=== PATIENT | female | born 1980 | race Caucasian/White ===

== ENCOUNTER → 2020-01-01 16:05 | Outpatient (CLI) | payer OTHER, SELFPAY ==
--- NOTE | ~2020-01-01 | MM_ITS ---
EXAMINATION: MM screening [facility] BI w christiano HISTORY: Screening mammogram TECHNIQUE: Craniocaudal and mediolateral oblique 3-D tomosynthesis images were obtained and synthetic 2-D images were generated. CAD analysis was submitted and interpreted. COMPARISON: 09/05/2018, 08/26/2018 BREAST PARENCHYMAL COMPOSITION: There are scattered areas of fibroglandular density. FINDINGS: There is no evidence of suspicious mass, calcification, or architectural distortion to sugg est malignancy in either breast. There has been no suspicious interval change. IMPRESSION: 1. No mammographic evidence of malignancy. 2. Recommend routine screening mammography in one year. BI-RADS Category 1: Negative Reviewed, dictated and finalized at location A.
== END ==
PROVIDERS: PCP Family Medicine; Visit Provider Obstetrics & Gynecology Gynecology
DX: Z12.31 Encounter for screening mammogram for malignant neoplasm of breast (principal)
CPT/HCPCS: 77063; 77067

== ENCOUNTER → 2020-12-30 09:50 | Outpatient (CLI) | payer OTHER, SELFPAY ==
--- NOTE | ~2020-12-30 | XR_ITS ---
EXAMINATION: XR lumbar spine 2-3V DATE: 12/30/2020 10:12 INDICATION: Low back pain TECHNIQUE: Anteroposterior and lateral views of the lumbar spine, and cone-down lateral view of the l umbosacral junction were obtained. COMPARISON: CT pelvis dated 12/09/2018 FINDINGS: Alignment is normal. Vertebral body and disc heights are normal. Mild lower lumbar facet osteoarthrit is. There is a band of lucency extending across the L5 pars interarticularis with corresponding bilat eral pars interarticularis defects identified on a CT of the pelvis dated 12/09/2018.. Sacrum and bilat eral sacroiliac joints are normal. IMPRESSION: 1. Chronic bilateral L5 pars interarticularis defects and mild lower lumbar facet osteoarthritis. Reviewed, dictated and finalized at location A. IMPRESSION: 1. Chronic bilateral L5 pars interarticularis defects and mild lower lumbar fac et osteoarthritis.
== END ==
PROVIDERS: PCP Nurse Practitioner Adult Health; Visit Provider Nurse Practitioner Adult Health
DX: M54.5 Low back pain (principal)
CPT/HCPCS: 72100

== ENCOUNTER → 2021-01-03 11:24 | Outpatient (CLI) | payer OTHER, SELFPAY ==
--- NOTE | ~2021-01-03 | MM_ITS ---
EXAMINATION: MM screening [facility] BI w christiano HISTORY: Screening TECHNIQUE: Craniocaudal and mediolateral oblique 3-D tomosynthesis images were obtained and synthetic 2-D images were generated. CAD analysis was submitted and interpreted. COMPARISON: Comparison to multiple prior studies sequentially, with oldest reviewed study dated 08/26. BREAST PARENCHYMAL COMPOSITION: There are scattered areas of fibroglandular density. FINDINGS: There is no evidence of suspicious mass, calcification, or architectural distortion to sugg est malignancy in either breast. There has been no suspicious interval change. IMPRESSION: 1. No mammographic evidence of malignancy. 2. Recommend routine screening mammography in one year. BI-RADS Category 1: Negative Reviewed, dictated and finalized at location A.
== END ==
PROVIDERS: PCP Nurse Practitioner Adult Health; Visit Provider Obstetrics & Gynecology Gynecology
DX: Z12.31 Encounter for screening mammogram for malignant neoplasm of breast (principal)
CPT/HCPCS: 77063; 77067

== ENCOUNTER 2021-01-09 06:55 | Outpatient (CLI) | payer OTHER, SELFPAY ==
--- NOTE | 2021-01-23 13:47 | WPDHOMESLEEP ---
Sleep Study - Home Unattended Date of Study: 01/09/21 <Nery Trujillo DO - Last Filed: 01/31/21 11:55> Ordering Provider: Sierra Vásquez, [employer] <Nery Trujillo DO - Last Filed: 01/31/21 11:55> Interpreting Provider: Nery Trujillo DO <Nery Trujillo DO - Last Filed: 01/31/21 11:55> Home Sleep Study Type: Watch PAT <Nery Trujillo DO - Last Filed: 01/31/21 11:55> Height: 1.7 m <Nery Trujillo DO - Last Filed: 01/31/21 11:55> Weight: 135.171 kg <Nery Trujillo DO - Last Filed: 01/31/21 11:55> Body Mass Index: 46.6 <Nery Trujillo DO - Last Filed: 01/31/21 11:55> Neck Circumference (inches): 18 <Nery Trujillo DO - Last Filed: 01/31/21 11:55> Letcher: 7 <Nery Trujillo DO - Last Filed: 01/31/21 11:55> Reason for Sleep Study The patient has known NEO and is on PAP Therapy. She is having issues with her mask coming off and condensation collecting in the mask. <Nery Trujillo DO - Last Filed: 01/31/21 11:55> Sleep History The patient is a 40-year-old female with hypertension, depression, anxiety and NEO on CPAP that had a home sleep test ordered due to issues with her CPAP. The patient states that her mask falls off and she gets condensation dressing and to her mask almost every night for the past 3 months. The patient had a split study done on 12/24/2014 that showed an AHI of 84.6. She was titrated on CPAP and the 2nd half of the study to 11 cm H2O. She had an EPR of 2 for comfort. The patient denies awakening from sleep short of breath. She denies awakening at night with heartburn, belching or cough. She constantly snores loud others complain. She often has difficulty sleeping when she has cold. She rarely wakes up gasping for breath throughout the night. She often has breathing problems at night observed by others. She rarely falls asleep during the day. She rarely has trouble at work or school due to sleepiness. She denies sleep paralysis, cataplexy and hypnagogic / hypnopompic hallucinations. She denies having nightmares. She often has thoughts racing through her mind. She often feels sad, depressed and anxious. She often has muscular tension. She denies noticing parts of her body jerk. She frequently kicks throughout the night. She rarely experiences crawling and aching feelings in her legs as well as leg pain during the night. She denies grinding her teeth during sleep and awakening with morning jaw pain. She is frequently bothered by pain during the day and is often awakened by pain throughout the night. She frequently wakes up feeling stiff in the morning with sore and achy muscles. The patient currently goes to bed at 10:00 p.m. on weekdays and weekends. He takes her 30-40 minutes to fall asleep. She wakes up 2-3 times throughout the night. When she wakes up she will use the restroom, check the house and look in on her kids. She can fall back asleep within 5-10 minutes. She wakes up at 5:45 a.m. on the weekdays and 7:30 a.m. on the weekends. She typically gets 6-7 hours of sleep per night she currently lives with her and her 5-year-old child. She denies consuming caffeinated beverages 2 hours prior to bedtime. She does not engage in physical exercise before bedtime. Will repeat prior to falling asleep. She denies watching television before going to sleep. She does not take any naps in the afternoon or evening. She denies tobacco, alcohol, caffeine and recreational drug use. <Nery Trujillo DO - Last Filed: 01/31/21 11:55> [facility] Past Medical History Medical History: Medical History (Updated 01/23/21 @ 14:20 by Nery Trujillo DO) Obstructive sleep apnea <Nery Trujillo DO - Last Filed: 01/31/21 11:55> Family History Family History: Family History Other Diabetes mellitus Family his
[2021-01-31 11:55] VITALS: BMI 46.6
== END 2021-01-23 13:00 | disposition home or self-care (01) ==
PROVIDERS: PCP Nurse Practitioner Adult Health; Visit Provider Nurse Practitioner Adult Health
DX: G47.30 Sleep apnea, unspecified (principal); G47.33 Obstructive sleep apnea (adult) (pediatric)
CPT/HCPCS: 95800

== ENCOUNTER → 2021-11-17 12:25 | Outpatient (CLI) | payer OTHER, SELFPAY ==
--- NOTE | ~2021-11-17 | CT_ITS ---
EXAMINATION: CT abdomen wo con DATE: 11/17/2021 12:57 INDICATION: Hernia of the anterior abdominal wall. History of bariatric surgery and hernia repair. TECHNIQUE: Computed tomography (CT) of the abdomen was performed without intravenous contrast. The do se-length product was 778.39 mGy-cm. Automated exposure control and iterative reconstruction techniqu e were employed. COMPARISON: No prior studies for comparison. . FINDINGS: Left lower lobe atelectasis. Borderline heart size. No significant pleural or pericardial e ffusion. There are surgical changes of gastric bypass. There are surgical changes lower anterior midl ine abdomen, consistent with previous hernia repair. No evidence for recurrence of hernia. Gallstones . The liver, spleen, pancreas, adrenal glands and kidneys are unremarkable. No significant vascular abn ormality. No lymphadenopathy. No free air or free fluid. No acute osseous abnormality. IMPRESSION: 1. Cholelithiasis. Reviewed, dictated and finalized at location A. IMPRESSION: 1. Cholelithiasis.
== END ==
PROVIDERS: PCP Nurse Practitioner Adult Health; Visit Provider Nurse Practitioner Adult Health
DX: K43.9 Ventral hernia without obstruction or gangrene (principal); K80.20 Calculus of gallbladder without cholecystitis without obstruction
CPT/HCPCS: 74150

== ENCOUNTER → 2022-01-09 15:47 | Outpatient (CLI) | payer OTHER, SELFPAY ==
--- NOTE | ~2022-01-09 | MM_ITS ---
EXAMINATION: MM screening [facility] BI w christiano HISTORY: Screening mammogram TECHNIQUE: Craniocaudal and mediolateral oblique 3-D tomosynthesis images were obtained and synthetic 2-D images were generated. CAD analysis was submitted and interpreted. COMPARISON: 01/03/2021, 01/01/2020, 08/26/2018 BREAST PARENCHYMAL COMPOSITION: There are scattered areas of fibroglandular density. FINDINGS: No suspicious mass, calcification, or architectural distortion are identified in either jamie ast to suggest malignancy. There has been no suspicious interval change. IMPRESSION: 1. No mammographic evidence of malignancy. 2. Recommend routine screening mammography in one year. BI-RADS Category 0: Incomplete: Needs additional imaging evaluation. Reviewed, dictated and finalized at location A.
== END ==
PROVIDERS: PCP Nurse Practitioner Adult Health; Visit Provider Obstetrics & Gynecology Gynecology
DX: Z12.31 Encounter for screening mammogram for malignant neoplasm of breast (principal)
CPT/HCPCS: 77063; 77067

== ENCOUNTER → 2022-09-15 10:58 | Outpatient (CLI) | payer OTHER, SELFPAY ==
--- NOTE | ~2022-09-15 | XR_ITS ---
EXAMINATION: XR chest 2V 09/15/2022 11:26 INDICATION: Chronic cough PROCEDURE: 2 view chest COMPARISON: No prior studies for comparison. FINDINGS: The lungs are clear. The cardiomediastinal silhouette is within normal limits. There are no pleural effusions. There is no pneumothorax suspected. IMPRESSION: 1: NO ACUTE CARDIOPULMONARY DISEASE. Reviewed, dictated and finalized at location A.
== END ==
PROVIDERS: PCP Nurse Practitioner Family; Visit Provider Nurse Practitioner Family
DX: R05.3 Chronic cough (principal)
CPT/HCPCS: 71046

== ENCOUNTER 2023-01-08 14:03 | Outpatient (CLI) | payer BC, OTHER, SELFPAY ==
--- NOTE | 2023-01-08 | ECHO_ITS ---
Patient Info Name: Adeola Dockery Age: 42 years : 1980 Gender: Female Ht: 67 in Wt: 280 lbs BSA: 2.52 m2 HR: 80 bpm BP: 117 / 82 mmHg Heart Rhythm: Sinus Rhythm Technical Quality: Good Exam Date: 01/08/2023 2:50 PM Exam Location: [facility] Pulmonary Patient Status: Outpatient Admit Date: 01/08/2023 Staff Ordering Physician: ChristopherBrian MD Economic Research Assistant: Virginia Torres RDCS Attending Provider: HarshadBrian MD Exam Type: CA echo doppler color flow Study Info Indications - PAROXYSMAL A FIB Complete two-dimensional, color flow and Doppler transthoracic echocardiogram is performed. Summary 1. Complete two-dimensional, color flow and Doppler transthoracic echocardiogram is performed. 2. Normal left ventricular size with mild concentric hypertrophy. Good systolic function of all segments with no segmental wall motion abnormalities. Ejection fraction is 65%. Grade 2 diastolic dysfunction is present. 3. No significant valve disease. 4. Mild left atrial enlargement. 5. Normal sinus rhythm. Left Ventricle Left ventricular chamber dimension is normal. Left ventricular systolic function is normal, estimated at 60-65%. There is mildly increased left ventricular wall thickness. Left ventricular septal wall motion is normal. The left ventricular diastolic function is grade II diastolic dysfunction. Right Ventricle Right ventricular chamber dimension is normal. Right ventricular systolic function is normal. Left Atria Left atrial chamber dimension is mildly enlarged. Right Atria Right atrial chamber dimension is normal. Aortic Valve The aortic valve is trileaflet. There is no aortic valve sclerosis. There is no aortic valve stenosis. There is no aortic valve regurgitation. Pulmonic Valve The pulmonic valve is normal. There is no pulmonic valve stenosis. There is no pulmonic regurgitation. Mitral Valve The mitral valve has normal leaflets. There is no mitral valve stenosis. There is no mitral valve regurgitation. Tricuspid Valve The tricuspid valve leaflets are normal. There is no significant tricuspid valve stenosis. There is trace tricuspid valve regurgitation. No pulmonary hypertension, estimated pulmonary arterial systolic pressure is Empty. Pericardium/Pleural The pericardium appears normal. There is no pericardial effusion. Inferior Vena Cava Normal inferior vena cava with >50% collapse upon inspiration consistent with Empty right atrial pressure, Empty. Aorta The aortic root size at the sinus of Valsalva is normal. The prox ascending aorta size is normal. Left Ventricular Outflow Tract Name Value Normal LVOT 2D LVOT Diameter 2.1 cm LVOT Doppler LVOT Peak Gradient 3 mmHg LVOT Mean Gradient 2 mmHg LVOT VTI 34 cm LVOT VTI/AV VTI Ratio 1.0 LVOT Stroke Volume 112 ml LVOT CO 4.2 l/min LVOT CI 1.7 l/min/m2 Pulmonic Valve Name Value Feli
== END 2023-01-08 14:04 | disposition home or self-care (01) ==
LOC: ANHCARD 14:06
PROVIDERS: PCP Nurse Practitioner Family; Visit Provider Internal Medicine Cardiovascular Disease
DX: I48.0 Paroxysmal atrial fibrillation (principal)
CPT/HCPCS: 93306

== ENCOUNTER → 2023-02-07 14:23 | Outpatient (CLI) | payer BC, OTHER, SELFPAY ==
--- NOTE | ~2023-02-07 | MM_ITS ---
EXAMINATION: MM screening [facility] BI w christiano HISTORY: Screening mammogram TECHNIQUE: Craniocaudal and mediolateral oblique 3-D tomosynthesis images were obtained and synthetic 2-D images were generated. CAD analysis was submitted and interpreted. COMPARISON: 01/09/2022, 01/03/2021, 01/01/2020 BREAST PARENCHYMAL COMPOSITION: There are scattered areas of fibroglandular density. FINDINGS: No suspicious mass, calcification, or architectural distortion are identified in either jamie ast to suggest malignancy. There has been no suspicious interval change. IMPRESSION: 1. No mammographic evidence of malignancy. 2. Recommend routine screening mammography in one year. BI-RADS Category 1: Negative Reviewed, dictated and finalized at location A.
== END ==
PROVIDERS: PCP Nurse Practitioner Family; Visit Provider Obstetrics & Gynecology Gynecology
DX: Z12.31 Encounter for screening mammogram for malignant neoplasm of breast (principal)
CPT/HCPCS: 77063; 77067

== ENCOUNTER 2023-09-25 01:05 | Day surgery (SDC) | payer OTHER, SELFPAY ==
[2023-09-13 10:00] VITALS: BMI 40.7
[2023-09-25] MEDS: LACTATED RINGERS 1,000 ML 150 ML IV CONT (07:36)
[2023-09-25 07:38] VITALS: BP 173/85; PULSE 71; RESP 20; TEMP 35.9; O2SAT 100; BMI 41.8
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
[2023-09-25 08:02] VITALS: BP 139/86
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
[2023-09-25 08:31] VITALS: BP 97/65
[2023-09-25 08:41] VITALS: BP 108/71
== END 2023-09-25 09:08 | disposition home or self-care (01) ==
PROVIDERS: PCP Nurse Practitioner Family; Visit Provider Internal Medicine Gastroenterology
PROC: 0DJD8ZZ Inspection of Lower Intestinal Tract, Via Natural or Artificial Opening Endoscopic (ICD-10-PCS; CPT 45378; principal; 2023-09-25 08:30)
DX: Z12.11 Encounter for screening for malignant neoplasm of colon (principal); K62.1 Rectal polyp; G47.33 Obstructive sleep apnea (adult) (pediatric); F41.9 Anxiety disorder, unspecified; Z98.84 Bariatric surgery status; Z87.891 Personal history of nicotine dependence; E66.01 Morbid (severe) obesity due to excess calories; Z68.41 Body mass index [BMI] 40.0-44.9, adult
CPT/HCPCS: 45380; 88305; J1100; J2405; J2704; J7120

== ENCOUNTER 2024-02-14 13:46 | Outpatient (CLI) | payer OTHER, SELFPAY ==
--- NOTE | ~2024-02-14 | MM_ITS ---
EXAMINATION: MM screening [facility] BI w christiano HISTORY: Screening TECHNIQUE: Craniocaudal and mediolateral oblique 3-D tomosynthesis images were obtained and synthetic 2-D images were generated. CAD analysis was submitted and interpreted. COMPARISON: Comparison to multiple prior studies sequentially, with oldest reviewed study dated 08/26. BREAST PARENCHYMAL COMPOSITION: Not dense: There are scattered areas of fibroglandular density. FINDINGS: There is no evidence of suspicious mass, calcification, or architectural distortion to sugg est malignancy in either breast. There has been no suspicious interval change. IMPRESSION: 1. No mammographic evidence of malignancy. 2. Recommend routine screening mammography in one year. 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
== END 2024-02-14 13:47 | disposition home or self-care (01) ==
LOC: MICIMG 13:47
PROVIDERS: PCP Nurse Practitioner Family; Visit Provider Nurse Practitioner Family
DX: Z12.31 Encounter for screening mammogram for malignant neoplasm of breast (principal)
CPT/HCPCS: 77063; 77067

== ENCOUNTER 2025-02-19 13:18 | Outpatient (CLI) | payer OTHER, SELFPAY ==
--- NOTE | ~2025-02-19 | MM_ITS ---
EXAMINATION: MM screening darlene BI w christiano HISTORY: Screening TECHNIQUE: Craniocaudal and mediolateral oblique 3-D tomosynthesis images were obtained and synthetic 2-D images were generated. CAD analysis was submitted and interpreted. COMPARISON: Comparison to multiple prior studies sequentially, with oldest reviewed study dated 01/01/2020. BREAST PARENCHYMAL COMPOSITION: Not dense: There are scattered areas of fibroglandular density. FINDINGS: There is no evidence of suspicious mass, calcification, or architectural distortion to suggest malignancy in either breast. There has been no suspicious interval change. IMPRESSION: 1. No mammographic evidence of malignancy. 2. Recommend routine screening mammography in one year. 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
== END 2025-02-19 13:19 | disposition home or self-care (01) ==
PROVIDERS: PCP Obstetrics & Gynecology Gynecology; Visit Provider Nurse Practitioner Family
DX: Z12.31 Encounter for screening mammogram for malignant neoplasm of breast (principal)
CPT/HCPCS: 77063; 77067

== ENCOUNTER 2025-02-22 01:42 | Day surgery (SDC) | payer OTHER, SELFPAY ==
--- NOTE | 2025-02-12 11:08 | SUR.PREOP ---
[facility] has started construction of its new state of the art ER which will open Spring 2026. With this, we anticipate parking may be a challenge for some our surgical patients and families. Parking spaces are limited but are available for all Surgical, obstetrics, and ER patients sharing this lot. If you arrive and find you are having a hard time finding a parking space, please note that we understand the challenges, please drive around the hospital and park near Hospital Entrance 1. When you enter this entrance, you can ask a volunteer to direct or take you back to the surgical waiting area to check in. We appreciate everyone?s understanding of these expected challenges while we build for your future. Report to the Outpatient Waiting Room, entrance under the green pavilion located off [address], at time _615_ on date _02/22/25_. Planned Procedure Time: _0815AM_.? Time changes happen often and if your time is changed the preop area will call you the afternoon before. - You and your visitor will be asked to self-screen and do not enter if you have any COVID symptoms. Please call surgeon if you need to reschedule. - A mask is optional within the hospital at this time. Patients may have clear liquids (water, carbonated beverages, clear teas, apple juice) until 3 hours prior to surgery with a maximum of 20 ounces. - No food from midnight until time of surgery and no smoking, or chewing tobacco (or any form of nicotine). No chewing gum, candy or mints. Take only the following medications with a SIP of water on the morning of surgery: _escitalopram__ DO NOT STOP ANY OF YOUR OTHER PRESCRIPTION MEDICATIONS PRIOR TO SURGERY EXCEPT THE FOLLOWING Hold all vitamins and supplements for 3 days per anesthesiologist. Medications to discontinue per physician _none__ Date to take last dose_of vitamins 02/18/25, Skip Zepbound dose on 02/17/25 and restart after procedure.__ Please no make-up, nail kazakh, hairspray, perfume, deodorant, or body powder the day of surgery.? No jewelry (including any body piercings) or valuables the day of surgery, leave them at home.? Please take a shower or bath the night before, or the morning of, surgery with an antibacterial soap.? Wear comfortable, loose fitting clothing. - Jewelry must be removed prior to entering the operating room.? Rings and piercings that are not removed may be cut off. - The hospital will not accept responsibility for valuables.? - Please leave all valuables, including medications, at home the day of surgery. If you are going home after surgery, a licensed driver education instructor must drive you home.? - NO public transportation without another adult if you receive anesthesia. - We recommend that an adult stay with you for 24 hours following discharge. - We also recommend that you do not drive, make important decision, drink alcoholic beverages, or take any drugs that were not prescribed by your health care provider for at least 24 hours after your discharge time. Follow any additional instructions given to you from your surgeon. Telephone instructions given to __Adeola__and asked if any additional questions and then verbalized understanding. Patient advised to call surgeon office or pre surgery nurse liaison [phone] if any additional questions.
[2025-02-12 11:13] VITALS: BMI 41.0
--- OUTSIDE RECORDS SUMMARY | 2025-02-22 01:45 | XMS_ITS | Clinical Summary ---
Author Organization [facility] [employer] Address [address] [place] [address] Care Team Providers Care Pound Attendant Name Role Phone Latoya Reis APRN-[facility] Primary Care Provider Source Comments [facility] [employer],non-owned Affiliates and Associated Physician Practices is amultiple site organization consisting of ambulatory clinics and hospital sitesin [place], [place], [place] and [place]. This disclosure is being madepursuant to the Care Everywhere program and may not contain all information available regarding this patient. Last updated 17.[facility] [employer] Allergies No known active allergies Medications * Be aware that medications may not be up to date on this document. Alwaysverify current medications with the patient. vitamin D, ergocalciferol , (DRISDOL) 24874 UNITS capsule Take 1 (one) capsule by mouth every 7 days Mondays09/28/19 18 Active escitalopram (LEXAPRO) 20 MG tablet Take 1 (one) tablet by mouth at bedtime Active lisinopril (PRINIVIL; ZESTRIL) 40 MG tablet Take 1 (one) tablet by mouth at bedtime Active triamcinolone acetonide (Kenalog) 0.1 % cream Apply to affected area 2 times daily as needed (rash) 06/23/19 23 Active tirzepatide (Zepbound) 10 MG/0.5ML injectionIndic ations:BMI 40.0-44.9, adult (HCC) Inject 10 (ten) mg subcutaneously every 7 days (once a week) 6 mL 09/25/19 25 Active amitriptyline (Elavil) 25 MG tablet 01/23/20 25 Active tirzepatide (Zepbound) 12.5 MG/0.5ML injectionIndic ations:BMI 40.0-44.9, adult (HCC) Inject 12.5 (twelve and one-half) mg subcutaneously every 7 days (once a week) 2 mL 1 01/27/20 25 Active tirzepatide (Zepbound) 10 MG/0.5ML injectionIndic ations:Morbid obesity (HCC),NEO (obstructive sleep apnea) Inject 10 (ten) mg subcutaneously every 7 days (once a week) 2 mL 2 10/29/19 25 025 Discontin ued(Tx Complete) Active Problems Problem Noted Date Diagnosed Date Iron deficiency 10/25/2023 Pre-op evaluation 10/24/2022 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 Encounters Date Type Department Care Team Description 01/26/2025 1:50 PM CDT Office Visit [facility] Management Services [address] [place] [address], [facility] [address] [id number] Shelby De La Torre APRN-ELIJAH BMI 40.0-44.9, adult (HCC) (Primary Dx) from Last 3 Months Family History Medical History Relation Name Comments Diabetes - Type 2 Father Parkinson's Disease Maternal Grandfather Alzheimer's Disease Maternal Grandmother Diabetes - Type 2 Mother Hypertension Mother Alzheimer's Disease Paternal Grandfather CAD (Coronary Artery Disease) Paternal Grandmother Relation Name Status Comments Father Maternal Grandfather Maternal Grandmother Mother Paternal Grandfather Paternal Grandmother Social History Tobacco Use Types Packs/Day Years Used Date Smoking Tobacco: Former Cigarettes 1997 Smokeless Tobacco: Never Tobacco Cessation:Counseling Given: Not Answered Alcohol Use Standard Drinks/Week Comments No 0 (1 standard drink = 0.6 oz pur e alcohol) Overall Financial Resource Strain (CARDIA) Answe r Date Recorded How hard is it for you to pa y for the very basics like food, housing, medical care, and heating? Not hard at all 10/24/2022 [facility] [place] [facility] - Occupational Stress Questionnaire Answer Date Recorded Do you feel stress - tense, restless, nervous, or anxious, or unable to sleep at night because your mind is troubled all the time - these days? Not at all 10/24/2022 Hunger Vital Sign Answer Date Recorded Within the past 12 months, y ou worried that your food would run out before you got the money to buy more. Never true 10/25/19 23 Within the past 12 months, t he food you bought just didn't last and you didn't have money to get more. Never true 10/24/2022 PRAPARE - Transportation Answer Date Re corded In the past 12 months, has l ack of transportation kept you from medical appointments or from getting medications? No 10/06 In the past 12 months, has l ack of transportation kept you from meetings, work, or from getting things needed for daily living? No 10/24/2022 Housing Stability Vital Sign Answer Solo e Recorded In the last 12 months, was t here a time when you were not able to pay the mortgage or rent on time? No 10/24/2022 In the last 12 months, how many places have you lived? 1 10/24/2022 In the last 12 months, was t here a time when you did not have a steady place to sleep or slept in a skilled nursing (including now)? No 10/24/2022 Comments No Sex and Gender Information Value Date Recorded Sex Assigned at Not on file Legal Sex Female 9:51 AM CDT Gender Identity Female 08/29/2017 2:14 PM CDT Sexual Orientation Not on file Last Filed Vital Signs Vital Sign Reading Time Taken Comments Blood Pressure 126/84 01/26/2025 1:33 PM CDT Pulse 75 01/26/2025 1:33 PM CDT Temperature 36.2 C (97.1 F) 01/26/2025 1:33 PM CDT Respiratory Rate 18 11/18/2023 11:2 0 AM CDT Oxygen Saturation 96% 01/26/2025 1:33 PM CDT Inhaled Oxygen Concentration - - Weight 116.8 kg (257 lb 9.6 oz) 01/26/2025 1:33 PM CDT Height 170.2 cm (5' 7) 01/26/2025 1:33 PM CDT Body Mass Index 40.35 01/26/2025 1:33 PM CDT Plan of Treatment Upcoming Encounters Date Type Department Care Team (Late st Contact Info) Description 03/10/2025 8:00 AM ART GALLERY DIRECTOR Office Visit [facility] Weight Management Services [address], [address] [place] [address] Shelby De La Torre APRN-[facility] [address] [place] [address] Health Maintenance Due Date Last Done Comments COLOGUARD (AGES 45-75) - COLON CA SCREENING 1978 COLON MONITORING 1978 COLONOSCOPY - COLON CA SCREENING 1978 CT COLONOGRAPHY - COLON CA SCREENING 1978 Colorectal Cancer Screening 1978 FIT - COLON CA SCREENING 1978 FLEX SIG - COLON CA SCREENING 1978 LIPID TESTING 1978 MAMMOGRAM 1978 HIV SCREENING 1993 HEPATITIS C SCREENING 06/29/1996 DTAP/TDAP/TD VACCINES (1 - Tdap) 1997 HEPATITIS B VACCINE (1 of 3 - 19+ 3-dose series) 1997 PAP SMEAR 07/05/1999 Cervical Cancer Screening 2008 PAP with HPV 2008 DEPRESSION SCREENING 04/08/2024 COVID-19 VACCINE ( - season) 2024 04/27/2021 INFLUENZA VACCINE (#1) 2024 5, 12/28/2016, 02/28/2016 SCREENING FOR DIABETES 02/11/2028 5, 10/23/2023, 12/03/2022, Additional history exists ZOSTER VACCINE (1 of 2) 2028 HIB VACCINE Aged Out No longer eligi ble based on patient's age to complete this topic HPV VACCINE Aged Out No longer eligi ble based on patient's age to complete this topic MENINGOCOCCAL (Group B) VACCINE SHARED DECISION-MAKING Aged Out No longer eligible based on patient's age to complete this topic MENINGOCOCCAL GROUPS A/C/Y/W VACCINE Aged Out No longer eligible based on patient's age to complete this topic PNEUMOCOCCAL VACCINE Aged Out No long er eligible based on patient's age to complete this topic Procedures Procedure Name Priority Date/Time Associated Diagnosis Comments ZINC BLOOD Routine 02/10/2025 1:39 PM ART GALLERY DIRECTOR Morbid obesity (HCC) Bariatric surgery status Vitamin deficiency Vitamin D deficiency Postsurgical malabsorption (HCC) VITAMIN E Routine 02/10/2025 1:39 PM ART GALLERY DIRECTOR Morbid obesity (HCC) Bariatric surgery status Vitamin deficiency Vitamin D deficiency Postsurgical malabsorption (HCC) VITAMIN B12 Routine 02/10/2025 1:39 PM ART GALLERY DIRECTOR Morbid obesity (HCC) Bariatric surgery status Vitamin deficiency Vitamin D deficiency Postsurgical malabsorption (HCC) VITAMIN B1 Routine 02/10/2025 1:39 PM ART GALLERY DIRECTOR Morbid obesity (HCC) Bariatric surgery status Vitamin deficiency Vitamin D deficiency Postsurgical malabsorption (HCC) VITAMIN A Routine 02/10/2025 1:39 PM ART GALLERY DIRECTOR Morbid obesity (HCC) Bariatric surgery status Vitamin deficiency Vitamin D deficiency Postsurgical malabsorption (HCC) PTH INTACT Routine 02/10/2025 1:39 PM ART GALLERY DIRECTOR Morbid obesity (HCC) Bariatric surgery status Vitamin deficiency Vitamin D deficiency Postsurgical malabsorption (HCC) MAGNESIUM BLOOD Routine 02/10/2025 1:39 PM ART GALLERY DIRECTOR Morbid obesity (HCC) Bariatric surgery status Vitamin deficiency Vitamin D deficiency Postsurgical malabsorption (HCC) FERRITIN Routine 02/10/2025 1:39 PM ART GALLERY DIRECTOR Morbid obesity (HCC) Bariatric surgery status Vitamin deficiency Vitamin D deficiency Postsurgical malabsorption (HCC) COPPER BLOOD Routine 02/10/2025 1:39 PM ART GALLERY DIRECTOR Morbid obesity (HCC) Bariatric surgery status Vitamin deficiency Vitamin D deficiency Postsurgical malabsorption (HCC) COMPREHENSIVE METABOLIC PANEL Routine 02/10/2025 1:39 PM ART GALLERY DIRECTOR Morbid obesity (HCC) Bariatric surgery status Vitamin deficiency Vitamin D deficiency Postsurgical malabsorption (HCC) CBC W/O DIFFERENTIAL Routine 02/10/2025 1:39 PM ART GALLERY DIRECTOR Morbid obesity (HCC) Bariatric surgery status Vitamin deficiency Vitamin D deficiency Postsurgical malabsorption (HCC) VITAMIN D 25-HYDROXY Routine 02/10/2025 1:38 PM ART GALLERY DIRECTOR Morbid obesity (HCC) Bariatric surgery status Vitamin deficiency Vitamin D deficiency Postsurgical malabsorption (HCC) IRON + TIBC PANEL Routine 02/10/2025 1:3 8 PM ART GALLERY DIRECTOR Morbid obesity (HCC) Bariatric surgery status Vitamin deficiency Vitamin D deficiency Postsurgical malabsorption (HCC) FOLATE Routine 02/10/2025 1:38 PM ART GALLERY DIRECTOR Morbid obesity (HCC) Bariatric surgery status Vitamin deficiency Vitamin D deficiency Postsurgical malabsorption (HCC) from Last 3 Months Results * ZINC BLOOD (02/10/2025 1:39 PM ART GALLERY DIRECTOR) Zinc, Plasma or Serum 66 44 - 115 ug/dL [facility] ACCOUNT BILL Comment:Detection Limit = 5 Blood BLOOD SPECIMEN / Unknown 02/10/2025 1:39 PM ART GALLERY DIRECTOR 02/10/2025 Narrative [facility] ACCOUNT BILL - 02/13/2025 6:07 AM ART GALLERY DIRECTOR Test(s) [id number], Plasma or Serum was developed and its performance characteristics determined by [facility]. It has not been cleared or approved by the Food and Drug Administration. Performed at: 01 - [address] [id number] Food Inspector: Deana Paniagua MD, Phone: [phone] Shelby De La Torre RN [facility] LAB - CHEMISTRY EDUAR VELASQUEZ Final Result [facility] ACCOUNT BILL [address] [place] [address] * VITAMIN A (02/10/2025 1:39 PM ART GALLERY DIRECTOR) Vitamin A 42.7 20.1 - 62.0 ug/dL [facility] ACCOUNT BILL Comment: Reference intervals for vitamin A determined from [facility] internal studies. Individuals with vitamin A less than 20 ug/dL are considered vitamin A deficient and those with serum concentrations less than 10 ug/dL are considered severely deficient. This test was developed and its performance characteristics determined by [facility]. It has not been cleared or approved by the Food and Drug Administration. Blood BLOOD SPECIMEN / Unknown 02/10/2025 1:39 PM ART GALLERY DIRECTOR 02/10/2025 Narrative [facility] ACCOUNT BILL - 02/17/2025 6:07 AM ART GALLERY DIRECTOR Performed at: 01 - [facility] [id number] Food Inspector: Deana Paniagua MD, Phone: [phone] us Shelby De La [facility] LAB - CHEMISTRY ORDE RABLES Final Result Performing Organization Address [facility]/ZIP Co de Phone Number [facility] ACCOUNT BILL [address] [place] [address] * VITAMIN E (02/10/2025 1:39 PM ART GALLERY DIRECTOR) [facility] Vitamin E Alpha Tocopherol 9.8 7.0 - 25.1 mg/L [facility] ACCOUNT BILL Vitamin E Gamma Tocopherol 0.7 0.5 - 5.5 mg/L [facility] ACCOUNT BILL Comment: Reference intervals for alpha and gamma-tocopherol determined from National Health and Nutrition Examination Survey, 0092-8172. Individuals with alpha-tocopherol levels less than 5.0 mg/L are considered vitamin E deficient. Blood BLOOD SPECIMEN / Unknown 02/10/2025 1:39 PM ART GALLERY DIRECTOR 02/10/2025 Narrative [facility] ACCOUNT BILL - 02/17/2025 6:07 AM ART GALLERY DIRECTOR Test(s) [id number] E(Alpha Tocopherol); 896264- Vitamin E(Gamma Tocopherol) was developed and its performance characteristics determined by [facility]. It has not been cleared or approved by the Food and Drug Administration. Performed at: - [facility] [id number] Food Inspector: Deana Paniagua MD, Phone: [phone] us Shelby De La [facility]re [facility] LAB - CHEMISTRY ORDE RABLES Final Result Performing Organization Address [facility]/ZIP Co de Phone Number [facility] ACCOUNT BILL [address] [place] [address] * VITAMIN B1 (02/10/2025 1:39 PM ART GALLERY DIRECTOR) Vitamin B1 Whole Blood 67.3 66.5 - 200.0 nmol/L [facility] ACCOUNT BILL Blood BLOOD SPECIMEN / Unknown 02/10/2025 1:39 PM ART GALLERY DIRECTOR 02/10/2025 Narrative [facility] ACCOUNT BILL - 02/15/2025 6:06 AM ART GALLERY DIRECTOR Test(s) [id number]-Oeq. B1, Whole Blood was developed and [facility] characteristics [facility]. It has not been cleared or approved by the Food and Drug Administration. Performed at: - [facility] [id number] Food Inspector: Deana Paniagua MD, Phone: [phone] us Shelby De La Torre [facility] LAB - CHEMISTRY ORDE RABLES Final Result Performing Organization Address [facility] Co de Phone Number [facility] ACCOUNT BILL [address] [place] [address] * PTH INTACT (02/10/2025 1:39 PM ART GALLERY DIRECTOR) [facility] PTH Intact 23 15 - 65 pg/mL [facility] ACCOUNT BILL Blood BLOOD SPECIMEN / Unknown 02/10/2025 1:39 PM ART GALLERY DIRECTOR 02/10/2025 Narrative [facility] ACCOUNT BILL - 02/11/2025 12:07 PM ART GALLERY DIRECTOR Performed at: - [facility] [id number] Food Inspector: Fahad Du PhD, Phone: [phone] us Shelby De La Torre [facility] LAB - CHEMISTRY ORDE RABLES Final Result Performing Organization Address City/[facility]/ZIP Co de Phone Number [facility] ACCOUNT BILL [address] [place] [address] * COPPER BLOOD (02/10/2025 1:39 PM ART GALLERY DIRECTOR) [facility] Copper 134 80 - 158 ug/dL [facility] ACCOUNT BILL Comment:Detection Limit = 5 Blood BLOOD SPECIMEN / Unknown 02/10/2025 1:39 PM ART GALLERY DIRECTOR 02/10/2025 Narrative [facility] ACCOUNT BILL - 02/13/2025 6:07 AM ART GALLERY DIRECTOR Test(s) [id number], Serum or Plasma was developed and its performance characteristics determined by [facility]. It has not been cleared or approved by the Food and Drug Administration. Performed at: - [facility] [id number] Food Inspector: Deana Paniagua MD, Phone: [phone] Shelby De La Torre [facility] LAB - CHEMISTRY ORDE RABLES Final Result Performing Organization Address [facility]/ZIP Co de Phone Number [facility] ACCOUNT BILL [address] [place] [address] * (ABNORMAL) CBC W/O DIFFERENTIAL (02/10/2025 1:39 PM ART GALLERY DIRECTOR) Pathologist [facility] WBC 7.3 3.4 - 10.8 x10E3/uL [facility] ACCOUNT BILL RBC 4.76 3.77 - 5.28 x10E6/uL [facility] ACCOUNT BILL Hemoglobin 12.1 11.1 - 15.9 g/dL [facility] ACCOUNT BILL Hematocrit 40.0 34.0 - 46.6 % [facility] ACCOUNT BILL MCV 84 79 - 97 fL [facility] ACCOUNT BILL MCH 25.4(L) 26.6 - 33.0 pg [facility] ACCOUNT BILL MCHC 30.3(L) 31.5 - 35.7 g/dL [facility] ACCOUNT BILL RDW 16.0(H) 11.7 - 15.4 % [facility] ACCOUNT BILL Platelet Count 290 150 - 450 x10E3/uL [facility] ACCOUNT BILL Blood BLOOD SPECIMEN / Unknown 02/10/2025 1:39 PM ART GALLERY DIRECTOR 02/10/2025 Narrative [facility] ACCOUNT BILL - 02/11/2025 6:07 AM ART GALLERY DIRECTOR Performed at: [facility] [id number] Food Inspector: Fahad Du PhD, Phone: [phone] Shelby De La Torre [facility] LAB - HEMATOLOGY ORD ERABLES Final Result Performing Organization Address City/[facility]/ZIP Co de Phone Number [facility] ACCOUNT BILL [address] [place] [address] * COMPREHENSIVE METABOLIC PANEL (02/10/2025 1:39 PM ART GALLERY DIRECTOR) Glucose 77 70 - 99 mg/dL [facility] ACCOUNT BILL BUN 8 6 - 24 mg/dL [facility] ACCOUNT BILL Creatinine 0.64 0.57 - 1.00 mg/dL [facility] ACCOUNT BILL eGFR by CKD-EPI 110 >59 mL/min/1.7 3 [facility] ACCOUNT BILL BUN/Creatinine Ratio 13 9 - 23 [facility] ACCOUNT BILL Sodium 140 134 - 144 mmol/L [facility] ACCOUNT BILL Potassium 4.6 3.5 - 5.2 mmol/L [facility] ACCOUNT BILL Chloride 101 96 - 106 mmol/L [facility] ACCOUNT BILL CO2 26 20 - 29 mmol/L [facility] ACCOUNT BILL Calcium 9.1 8.7 - 10.2 mg/dL [facility] ACCOUNT BILL Protein Total 6.9 6.0 - 8.5 g/dL [facility] ACCOUNT BILL Albumin 4.4 3.9 - 4.9 g/dL [facility] ACCOUNT BILL Globulin Total 2.5 1.5 - 4.5 g/dL [facility] ACCOUNT BILL Bilirubin Total 0.4 0.0 - 1.2 mg/dL [facility] ACCOUNT BILL Alkaline Phosphatase 94 41 - 116 IU/L [facility] ACCOUNT BILL AST 22 0 - 40 IU/L [facility] ACCOUNT BILL ALT 17 0 - 32 IU/L [facility] ACCOUNT BILL Blood BLOOD SPECIMEN / Unknown 02/10/2025 1:39 PM ART GALLERY DIRECTOR 02/10/2025 Narrative [facility] ACCOUNT BILL - 02/11/2025 9:35 AM ART GALLERY DIRECTOR Performed at: 01 - [facility] [address] [id number] Food Inspector: Fahad Du PhD, Phone: [phone] us Shelby De La Torre APRN-[facility] LAB - CHEMISTRY EDUAR VELASQUEZ Final Result [facility] ACCOUNT BILL [address] [place] [address] * (ABNORMAL) MAGNESIUM BLOOD (02/10/2025 1:39 PM ART GALLERY DIRECTOR) Magnesium 2.4(H) 1.6 - 2.3 mg/dL [facility] ACCOUNT BILL Blood BLOOD SPECIMEN / Unknown 02/10/2025 1:39 PM ART GALLERY DIRECTOR 02/10/2025 Narrative [facility] ACCOUNT BILL - 02/11/2025 12:07 PM ART GALLERY DIRECTOR Performed at: [address] [place] [id number] Food Inspector: Fahad Du PhD, Phone: [phone] Shelby De La Torre APRN-[facility] LAB - CHEMISTRY ORDE RABLES Final Result Performing Organization Address City/[facility] Co de Phone Number [facility] ACCOUNT BILL [address] [place] [address] * VITAMIN B12 (02/10/2025 1:39 PM ART GALLERY DIRECTOR) Vitamin B12 485 232 - 1,245 pg/mL [facility] ACCOUNT BILL Blood BLOOD SPECIMEN / Unknown 02/10/2025 1:39 PM ART GALLERY DIRECTOR 02/10/2025 Narrative [facility] ACCOUNT BILL - 02/11/2025 12:07 PM ART GALLERY DIRECTOR Performed at: [address] [place] [id number] Food Inspector: Fahad Du PhD, Phone: [phone] Shelby De La Torre [facility] LAB - CHEMISTRY ORDE RABLES Final Result Performing Organization Address City/[facility] Co de Phone Number [facility] ACCOUNT BILL [address] [place] [address] * FERRITIN (02/10/2025 1:39 PM ART GALLERY DIRECTOR) Ferritin 15 15 - 150 ng/mL [facility] ACCOUNT BILL Blood BLOOD SPECIMEN / Unknown 02/10/2025 1:39 PM ART GALLERY DIRECTOR 02/10/2025 Narrative [facility] ACCOUNT BILL - 02/11/2025 12:07 PM ART GALLERY DIRECTOR Performed at: [address] [place] [id number] Food Inspector: Fahad Du PhD, Phone: [phone] us Shelby De La Torre APRN-[facility] LAB - CHEMISTRY EDUAR VELASQUEZ Final Result Performing Organization Address City/[facility]/ZIP Co de Phone Number [facility] ACCOUNT BILL [address] [place] [address] * VITAMIN D 25-HYDROXY (02/10/2025 1:38 PM ART GALLERY DIRECTOR) Vitamin D, 25 Hydroxy 44.0 30.0 - 100.0 ng/mL [facility] ACCOUNT BILL Comment: Vitamin D deficiency has been defined by the [place] of [employer] and an Endocrine Society practice guideline as a level of serum 25-OH vitamin D less than 20 ng/mL (1,2). The Endocrine Society went on to further define vitamin D insufficiency as a level between 21 and 29 ng/mL (2). 1. IOM ([place] of Medicine). 2010. Dietary reference intakes for calcium and D. [place]: The National Academies Press. 2. David MF, Robby SORIA, Marly BATISTA, et al. Evaluation, treatment, and prevention of vitamin D deficiency: an Endocrine Society clinical practice guideline. JCEM. 2010; 96(7):1911-30. Blood BLOOD SPECIMEN / Unknown 02/10/2025 1:38 PM ART GALLERY DIRECTOR 02/10/2025 Narrative [facility] ACCOUNT BILL - 02/11/2025 12:07 PM ART GALLERY DIRECTOR Performed at: - [facility] [id number] Food Inspector: Fahad Du PhD, Phone: [phone] us Shelby NAJERA LAB - CHEMISTRY EDUAR VELASQUEZ Final Result Performing Organization Address City/[facility]/ZIP Co de Phone Number [facility] ACCOUNT BILL [address] [place] [address] * (ABNORMAL) IRON + TIBC PANEL (02/10/2025 1:38 PM ART GALLERY DIRECTOR) TIBC 362 250 - 450 ug/dL [facility] ACCOUNT BILL UIBC 341 131 - 425 ug/dL [facility] ACCOUNT BILL Iron 21(L) 27 - 159 ug/dL [facility] ACCOUNT BILL Iron Saturation 6(LL) 15 - 55 % [facility] ACCOUNT BILL Blood BLOOD SPECIMEN / Unknown 02/10/2025 1:38 PM ART GALLERY DIRECTOR 02/10/2025 Narrative [facility] ACCOUNT BILL - 02/11/2025 12:07 PM ART GALLERY DIRECTOR Performed at: - [facility] [id number] Food Inspector: Fahad Du PhD, Phone: [phone] Shelby De La Torre APRN-[facility] LAB - CHEMISTRY ORDE RABRADHA Final Result Performing Organization Address City/[facility]/ZIP Co de Phone Number [facility] ACCOUNT BILL [address] [place] [address] * FOLATE (02/10/2025 1:38 PM ART GALLERY DIRECTOR) [facility] Folate >20.0 >3.0 ng/mL [facility] ACCOUNT BILL Comment: A serum folate concentration of less than 3.1 ng/mL is considered to represent clinical deficiency. Blood BLOOD SPECIMEN / Unknown 02/10/2025 1:38 PM ART GALLERY DIRECTOR 02/10/2025 Narrative [facility] ACCOUNT BILL - 02/11/2025 12:07 PM ART GALLERY DIRECTOR Performed at: - [facility] [id number] Food Inspector: Fahad Du PhD, Phone: [phone] Shelby De La Torre [facility] LAB - CHEMISTRY ORDE RABRADHA Final Result [facility] ACCOUNT BILL [address] [place] [address] from Last 3 Months Insurance [facility] * Guarantor: CLAYTON SINHA Account Type Relation to Patient Date of Phone Billing Address Personal/Family [address] [employer] * Guarantor: CLAYTON SINHA Account Type Relation to Patient Date of Phone Billing Address Personal/Family [address] [employer] * Guarantor: CLAYTON SINHA Account Type Relation to Patient Date of Phone Billing Address Personal/Family [address] [employer] Advance Directives * Full Code (Latest Code Status on File) Date Activated Date Inactivated Comments 10/24/2022 2:07 PM 10/25/2022 5:19 PM * Full Code Date Activated Date Inactivated Comments 05/14/2018 2:13 PM 05/15/2018 7:01 PM Care Teams Pound Attendant Relationship Specialty Start Date End Date Latoya Reis, RN [facility] [address] [place] [address] PCP - General Nurse Practitioner Family 09/12/22
--- OUTSIDE RECORDS SUMMARY | 2025-02-22 01:45 | XMS_ITS | Patient Health Record ---
Author Organization [facility] Address [address] [place], [place] [id number] Care Team Providers Care Slide Forming Machine Operator Name Role Phone STEFANIA PALUMBO Unavailable [phone] Tiffany Bennett Unavailable Unavailable Reason For Referral No Information Social History Social History Additional Details Category Social Info Options Details Migrated Social History Migrated Social History History of tobacco use : , Smoking Status : Former smoker Plan Of Treatment No Information Insurance Providers Payer Name Payer Address Payer Phone Subscriber Number Group Number Insured Name Patient Relationship to Insured Coverage Start Date Coverage End Date [facility] [address] [address] [place] [address] [id number] ALISON SINHA Spouse - patient is the spouse of the insured
--- OUTSIDE RECORDS SUMMARY | 2025-02-22 01:45 | XMS_ITS | Encounter Summary ---
Author Organization [facility] Care Team Providers Care Layout Operator Name Role Phone Albetr Eden MD Primary Care Provider [phone] Sierra Vásquez SOURCING MANAGER Primary Care Provider [phone] Tara, Physician Primary Care Provider [phone] Latoya Reis SOURCING MANAGER Primary Care Provider + Encounter Details Date Type Department Care Team (Latest Contact Info) Description 11/25/2017 Orders Only [facility] ProviderAgnes MD [address] [place] [id number] Social History Tobacco Use Types Packs/Day Years Used Date Smoking Tobacco: Never Assessed Comments Unknown Sex and Gender Information Value Date Recorded Sex Assigned at Not on file 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 Historical Provider Final Res ult documented in this encounter Visit Diagnoses Not on filedocumented in this encounter Care Teams Layout Operator Relationship Specialty Start Date End Date Albert Eden MD [address] [place] [id number] PCP - General Family Medicine 12/05/18 05/08/21 Sierra Vásquez NP [facility] [place] [address] PCP - General Nurse Practitioner 05/09/21 05/13/22 No, Physician PCP - General 05/14/22 06/13/22 Latoya Reis NP PCP - General Nurse Practitioner 06/14/22 documented as of this encounter
--- OUTSIDE RECORDS SUMMARY | 2025-02-22 01:46 | XMS_ITS | Clinical Summary ---
Author Organization [facility] Address [address] [place] [address] Care Team Providers Care Cleaning Attendant Name Role Phone Latoya Reis PEGGER Primary Care Provider + Allergies No known active allergies Medications escitalopram (LEXAPRO) 20 mg tablet Take 1 tablet (20 mg total) by mouth daily Active multivitamin capsule Take 1 capsule by mouth daily Active Vitamin D2 1,250 mcg (50,000 unit) capsule 0 Active lisinopriL (PRINIVIL,ZESTR IL) 40 mg tablet 0 Active acetaminophen ER (TYLENOL) 650 mg 8 hr tablet Take by mouth Active phentermine (ADIPEX-P) 37.5 mg tablet Take 37.5 mg by mouth daily 2 Active PARoxetine (PAXIL) 20 mg tablet paroxetine 20 mg tablet TAKE 1 TABLET BY MOUTH EVERY DAY IN THE MORNING Active methocarbamoL (ROBAXIN) 500 mg tablet Take 1 tablet (500 mg total) by mouth 2 (two) times a day as needed 3 Active metFORMIN XR (GLUCOPHAGE XR) 500 mg 24 hr tablet metformin ER 500 mg tablet,extended release 24 hr TAKE 1 TABLET BY MOUTH EVERY DAY Active famotidine (PEPCID) 40 mg tablet Take 1 tablet (40 mg total) by mouth daily 3 Active albuterol HFA (Ventolin HFA) 90 mcg/actuation inhaler Inhale 2 puffs every 6 (six) hours as needed for wheezing 1 each 3 3 Active Active Problems Problem Noted Date Diagnosed Date Pulmonary air trapping 06/14/2022 History of pulmonary embolism 02/13/2019 BMI 45.0-49.9, adult (CMS/HCC) 02/13/2019 Pulmonary infarction 02/06/2019 Overview (02/06/2019): Had resolved, patient had chest pain for about 3 weeks. Non-smoker 06/12/2018 Overview (02/06/2019): Patient is a lifelong nonsmoker. Status post bariatric surgery 06/12/2018 Overview (02/06/2019): She is losing weight. Pulmonary nodule 12/04/2016 Overview (02/06/2019): 06/12/2018: 3 mm, right upper lobe, repeated CT scan of the chest after 12 months, 11/23 showed no pulmonary nodules or masses. It did show accelerated atherosclerosis and cardiomegaly. Patient will discuss that with her primary care physician. Pulmonary emboli 12/04/2016 Overview (02/06/2019): The patient has unprovoked pulmonary embolism. Lupus anticoagulant antibody was negative. D-dimer after stopping Xarelto was negative. No need for anticoagulation. NEO (obstructive sleep apnea) 12/04/2016 Overview (02/06/2019): Patient is using CPAP on a regular basis. Her pressure has been adjusted. Immunizations Immunization Administration Dates Next Due Influenza, Quadrivalent, Split, Intramuscular ,02/28/2016 Surgical History Surgery Date Site/Laterality Comments CARPAL TUNNEL RELEASE Right SECTION BARIATRIC SURGERY Medical History Medical History Date Comments Pulmonary infarction (HCC) 02/06/2019 Had r esolved, patient had chest pain for about 3 weeks. Family History Relation Name Status Comments Father Alive Mother Alive Social History Tobacco Use Types Packs/Day Years Used Date Smoking Tobacco: Former Cigarettes Q uit: 1997 Smokeless Tobacco: Never Tobacco Cessation:Counseling Given: Not Answered AUDIT-C Answer Date Recorded Q1: How often do you have a drink containing alcohol? Never 06/14/2022 Q2: How many drinks containi ng alcohol do you have on a typical day when you are drinking? Patient does not drink Q3: How often do you have si x or more drinks on one occasion? 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 Gender Identity Not on file Sexual Orientation Not on file Last Filed Vital Signs Vital Sign Reading Time Taken Comments Blood Pressure 146/119 11/21/2022 9:09 AM CDT Pulse 76 11/21/2022 9:09 AM CDT Temperature 36.8 C (98.3 F) 11/21/2022 9:09 AM CDT Respiratory Rate 18 11/21/2022 9:09 AM CDT Oxygen Saturation 96% 11/21/2022 9:09 AM CDT Inhaled Oxygen Concentration - - Weight 127.8 kg (281 lb 11.2 oz) 11/21/2022 9:09 AM CDT Height 170.2 cm (5' 7.01) 11/21/2022 9:09 AM CD T Body Mass Index 44.11 11/21/2022 9:09 AM CDT Plan of Treatment Health Maintenance Due Date Last Done Comments Breast Cancer Screening-Mammogram 1978 Cervical Cancer Screening 1978 Colon Cancer Screening-Colonoscopy 1978 Depression Screening 1978 Hepatitis C Screening 1978 DTaP/Tdap/Td Vaccine (1 - Tdap) 1989 Hepatitis B Screening 1996 Regular Well Visit/Exam 18-64 1996 Covid-19 Vaccine ( season) 2024 04/27/2021 Influenza Vaccine (#1) 2024 2, 02/25/2021, 12/28/2016, Additional history exists HPV Vaccines Aged Out No longer eligi ble based on patient's age to complete this topic Pneumococcal vaccine <65 Aged Out No longer eligible based on patient's age to complete this topic Insurance [facility] Care Teams Cleaning Attendant Relationship Specialty Start Date End Date Latoya Reis NP PCP - General Nurse Practitioner 06/14/22
--- OUTSIDE RECORDS SUMMARY | 2025-02-22 01:46 | XMS_ITS | Data Portability ---
Author Organization [facility] [employer] Address [address] [place] [address] Assessment No assessment recorded. Plan of Treatment Reminders Order Date Submit Date Provider Last Modified By Organization Details Last Modified Time Details Appointments None record ed. Lab None record ed. Referral None record ed. Procedures None record ed. Surgeries None record ed. Imaging None record ed. Medication Orders None record ed. Patient TargetsNo targets recorded. Patient InstructionsNo instructions recorded. Reason for Referral None Reported. Medical Equipment None Reported. Medications Name Sig Start Date Stop Date Status Note LastModified by Organization Details LastModified Time phentermine 37.5 mg tablet TAKE 1 TABLET BY MOUTH EVERY DAY active Not Available Not Available No t Available methocarbamol 750 mg tablet TAKE 1 TABLET BY MOUTH TWICE DAILY FOR 10 DAYS NEEDED active Not Available Not Available No t Available paroxetine 20 mg tablet TAKE 1 TABLET BY MOUTH EVERY DAY IN THE MORNING active Not Available Not Available No t Available Vitamin D2 1,250 mcg (50,000 unit) capsule active Not Available Not Available Not Available lisinopril 40 mg tablet active Not Available Not Available No t Available metformin ER 500 mg tablet,extended release 24 hr TAKE 1 TABLET BY MOUTH EVERY DAY active Not Available Not Available No t Available escitalopram 20 mg tablet TAKE 1 TABLET BY MOUTH DAILY active Not Available Not Available No t Available metaxalone 800 mg tablet TAKE 1 TABLET BY MOUTH TWICE DAILY FOR 5 DAYS active Not Available Not Available No t Available Vitals None Recorded Social History None recorded. Functional Status None recorded. Mental Status None recorded. Family History Nothing Reported. Medical History No medical history recorded. Gynecological HistoryNo gynecological history recorded. Obstetrics History GPAL:G 0 P 0 0 0 0 Immunizations Vaccine Type Date Status Note Provider Nam e and Address Organization Details Recorded Time Influenza, split virus, quadrivalent, PF 01/26/2022 completed Sunitha Recinos NP [address] [facility] [address] ,[facility] [address], [place], [address], [facility] 05/25/2022 14:19:53 Influenza, split virus, quadrivalent, PF 02/25/2021 completed Not Available [facility] 13:01:10 Past Encounters Encounter ID Performer Location Encounter Start Date Encounter Closed Date Diagnosis/Indication Diagnosis SNOMED-CT Code Diagnosis ICD10 Code Diagnosis IMO Codes Diagnosis Note [id number] Michele Stephens DO Main Office [address] [facility] [place] [address] 02/25/2021 11:56:39 03/09/2021 03:50:42 Active or passive immunization [id number] Z23 [id number] Sunitha Recinos NP Main Office [address] [facility] [address] [place] [address] 01/26/2022 16:04:16 03/19/2022 03:50:53 Active or passive immunization [id number] Z23 Health Concerns Section Related Observation LastModified by Organization Detai ls LastModified Time None Recorded Concern Status LastModified by Organization Details LastModified Time None Recorded Advance Directives Directive None Recorded Payers Insurance Date Sequence Insurance Name Policy Number Policy Platt Covered Member ID Platt Member ID Guarantor Name 01/26/2022 1 [facility] [id number] Leon Sinha [id number] Adeola Sinha OBGyn Episode No OBEpisode recorded.
--- OUTSIDE RECORDS SUMMARY | 2025-02-22 01:46 | XMS_ITS | Clinical Summary ---
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 Gender Identity Not on file Sexual Orientation Not on file Plan of Treatment Health Maintenance Due Date Last Done Comments Hepatitis C Virus (HCV) Screening 1978 TdaP Immunization 1978 Hepatitis B Immunization (1 of 3 - 19+ 3-dose series) 1997 Pap Smear 07/05/1999 Cervical Cancer Screening (CCS) 2008 HPV/Cotest 2008 Cologuard 07/05/2023 Colonoscopy 07/05/2023 Colorectal Cancer Screening 07/05/2023 Immunochemical Fecal Occult Blood 07/05/2023 Influenza Immunization (#1) 2024 11/2 , 01/09/2020, 02/13/2019, Additional history exists SARS-COV-2 Immunization ( season) 2024 04/27/2021, 07/24/2020, 07/23/2020, Additional history exists Respiratory Syncytial Virus (RSV) Immunization (Adult) (1 - 1-dose 75+ series) 2053 Human Papillomavirus (HPV) Immunization Aged Out No longer eligible based on patient's age to complete this topic Meningococcal Immunization (ACWY) Aged Out No longer eligible based on patient's age to complete this topic Pneumococcal Immunization Combined Aged Out No longer eligible based on patient's age to complete this topic Rotavirus Immunization Aged Out No lo nger eligible based on patient's age to complete this topic
--- OUTSIDE RECORDS SUMMARY | 2025-02-22 01:46 | XMS_ITS | Clinical Summary ---
Author Organization [facility] [address] [facility] Address [address] [place] [address] Phone Care Team Providers Care Hydrotreater Operator Name Role Phone Tiffany Bennett MD Primary Care Provider Allergies No known active allergies Social History Tobacco Use Types Packs/Day Years Used Date Smoking Tobacco: Never Assessed Comments Unknown Sex and Gender Information Value Date Recorded Sex Assigned at Not on file Legal Sex Female 11:36 AM CDT Gender Identity Not on file Sexual Orientation Not on file Last Filed Vital Signs Vital Sign Reading Time Taken Comments Blood Pressure 145/85 09/08/2012 11:40 AM CDT Pulse 64 09/08/2012 11:40 AM CDT Temperature 36.7 C (98 F) 09/08/2012 11:40 AM CDT Respiratory Rate 18 09/08/2012 11:40 AM CDT Oxygen Saturation - - Inhaled Oxygen Concentration - - Weight 136.1 kg (300 lb) 09/08/2012 11:40 AM CDT Height 170.2 cm (5' 7) 09/08/2012 11:40 AM CDT Body Mass Index 46.99 09/08/2012 11:40 AM CDT Plan of Treatment Health Maintenance Due Date Last Done Comments DTAP/TDAP/TD VACCINES (1 - Tdap) 1997 HEPATITIS B VACCINES (1 of 3 - 19+ 3-dose series) 1997 HPV/Cotest (21-29) 07/05/1999 CERVICAL CANCER SCREENING 2008 HPV/Cotest (30-65) 2008 PAP SMEAR 2008 BREAST CANCER SCREENING 2018 COLORECTAL SCREENING 07/05/2023 Colorectal Cancer Screening 07/05/2023 FIT-DNA Q 3 years 07/05/2023 FIT/FOBT Q 1 year 07/05/2023 Flex Sig/CT Colonography Q 5 years 07/05/2023 INFLUENZA VACCINE (#1) 2024 HPV VACCINES Aged Out No longer eligi ble based on patient's age to complete this topic Insurance [employer] PPO [id number] OPT[employer] PPO [id number] Care Teams Hydrotreater Operator Relationship Specialty Start Date End Date Tiffany Bennett MD PCP - General Family Practice 12/30/14
--- NOTE | 2025-02-22 08:28 | WPDHPUPDATE1 ---
History and Physical Update Update Date/Time: 02/22/25 08:28 History and Physical has been reviewed, including an updated exam of the patient. There are NO changes in the patient's condition. Risks, benefits, and alternatives have been discussed and questions answered. Patient agrees to proceed with procedure.
--- NOTE | 2025-02-22 08:28 | PM.HPGS ---
History of Present Illness History of Present Illness Consent: Risks, benefits, and alternatives have been discussed and questions answered. Patient agrees to proceed with procedure. Chief complaint: abnormal uterine bleeding Narrative: Adeola Dockery is a 44 year old female with irregular cycles approximately every 2 weeks followed by prolonged bleeding for 2 weeks. It was recommended to undergo D&C hysteroscopy for further evaluation. Risks of infection, bleeding, perforation, and possible pathology are reviewed. Patient voices understanding and agrees to proceed. 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 Revised 2022 Family History Family History Father Diabetes mellitus Mother Diabetes mellitus Other Family history of arthritis Hypertension Social History Social History Smoking status: Never smoker Tobacco type: cigarettes Smoking end date: 04/08/93 Additional smoking assessment comments: just in high school Alcohol intake: never Substance use: never Substance use type: does not use Do You Feel Safe in your Home?: Yes Lack of Transportation: No Lack of Food: Never True Current Housing: I Have Housing Concerned About Future Housing: No Difficulty Paying Gas/Electric Bills: No Difficulty Paying for Meds: No Currently Unemployed: No Difficulty w/ Childcare or Family Care: No Living arrangements: with family Occupation/Education: occupation Gender identity (if verbalized by the patient): Female Spiritual care concerns: No Meds Home Medications and Allergies Home Medications ?Medication ?Instructions ?Recorded ?Confirmed ?Type Bariatric mult. vitamin 1 tablet BYMOUTH 1XD 05/15/23 02/12/25 History Calcium 1 tablet BYMOUTH 1XD 05/15/23 02/12/25 History ferrous sulfate 325 mg (65 mg 325 mg PO DAILY 02/13/24 02/12/25 History iron) tablet (FeroSul) tirzepatide (weight loss) 10 10 mg subcut WEEKLY 06/04/24 02/12/25 History mg/0.5 mL subcutaneous pen injector (Zepbound) ergocalciferol (vitamin D2) 1,250 1,250 mcg PO WEEKLY #12 caps 07/09/24 02/12/25 Rx mcg (50,000 unit) capsule lisinopril 40 mg tablet 40 mg PO DAILY #90 tabs 10/01/24 02/12/25 Rx amitriptyline 25 mg tablet 25 mg PO QHS #90 tabs 01/22/25 02/12/25 Rx escitalopram oxalate 20 mg tablet 20 mg PO DAILY #90 tabs 02/16/25 Rx Allergies Allergy/AdvReac Type Severity Reaction Status Date / Time No Known Allergies Allergy Verified 02/12/25 11:11 Exam Const: General: healthy appearing and alert Orientation/consciousness: patient oriented x3 Resp: Effort & Inspection: normal respiratory effort : External Female Exam: normal external appearance Speculum Exam - Vagina: normal appearance of the vagina and normal vaginal discharge Speculum Exam - Cervix: normal appearance of the cervix Bimanual exam- vagina & uterus: uterine size normal and consistency normal Bimanual Exam- Adnexa, other: normal adnexae and No adnexal tenderness Neuro: General: patient oriented x3 Assessment and Plan Assessment and plan (1) Menorrhagia: Code(s): N92.0 - Excessive and frequent menstruation with regular cycle Status: Acute Assessment and Plan: Plan to proceed with D&C hysteroscopy
[2025-02-22 08:45] VITALS: BP 138/70; PULSE 69; RESP 16; TEMP 36.3; O2SAT 100
[2025-02-22] MEDS: ACETAMINOPHEN 500 MG TABLET 1000 MG PO (09:14)
--- NOTE | 2025-02-22 09:14 | WPDANESEPPF ---
Anes - Initial Pre Proc Eval Procedure: Operation Date: 02/22/25 10:30 Proposed Procedures p Hysteroscopy Dilation and Curettage - Kami Rodríguez MD Date/Time: 02/22/25 09:14 Surgeon: Kami Rodríguez MD Pre Op Diagnosis: abnormal uterine bleeding Patient Data Age: 44 Gender: F Height: 1.7 m Weight: 118.8 kg Allergies Allergy/AdvReac Type Severity Reaction Status Date / Time No Known Allergies Allergy Verified 02/12/25 11:11 Home Medications ?Medication ?Instructions ?Recorded ?Confirmed ?Type Bariatric mult. vitamin 1 tablet BYMOUTH 1XD 05/15/23 02/12/25 History Calcium 1 tablet BYMOUTH 1XD 05/15/23 02/12/25 History ferrous sulfate 325 mg (65 mg 325 mg PO DAILY 02/13/24 02/12/25 History iron) tablet (FeroSul) tirzepatide (weight loss) 10 10 mg subcut WEEKLY 06/04/24 02/12/25 History mg/0.5 mL subcutaneous pen injector (Zepbound) ergocalciferol (vitamin D2) 1,250 1,250 mcg PO WEEKLY #12 caps 07/09/24 02/12/25 Rx mcg (50,000 unit) capsule lisinopril 40 mg tablet 40 mg PO DAILY #90 tabs 10/01/24 02/12/25 Rx amitriptyline 25 mg tablet 25 mg PO QHS #90 tabs 01/22/25 02/12/25 Rx escitalopram oxalate 20 mg tablet 20 mg PO DAILY #90 tabs 02/16/25 Rx Patient hx anesthesia problems: none Family hx anesthesia problems: none Results Review: All pre-operative results and documents have been reviewed as part of the pre-operative evaluation. 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 Revised 2022 Family History Family History Father Diabetes mellitus Mother Diabetes mellitus Other Family history of arthritis Hypertension Social History Social History Smoking status: Never smoker Tobacco type: cigarettes Smoking end date: 04/08/93 Additional smoking assessment comments: just in high school Alcohol intake: never Substance use: never Substance use type: does not use Do You Feel Safe in your Home?: Yes Lack of Transportation: No Lack of Food: Never True Current Housing: I Have Housing Concerned About Future Housing: No Difficulty Paying Gas/Electric Bills: No Difficulty Paying for Meds: No Currently Unemployed: No Difficulty w/ Childcare or Family Care: No Living arrangements: with family Occupation/Education: occupation Gender identity (if verbalized by the patient): Female Spiritual care concerns: No Anes - Eval Final PreProcedure Day of Procedure 02/22/25 09:14 Patient weight: morbidly obese Heart: regular rate and rhythm Lungs: clear to auscultation Airway: Mallampati scale class II Neurological: alert and oriented Last oral intake: >/= 8 hours ASA classification: III Emergent: no Anesthetic plan: proceed Anesthesia type and monitoring: general GIVS and standard monitoring Results Review: All pre-operative results and documents have been reviewed as part of the pre-operative evaluation. Informed Consent: The patient's anesthetic plan and its attendant risks and benefits were discussed with the patient/family/POA. Questions were solicited and answers provided to the satisfaction of the patient/family/POA.
[2025-02-22] MEDS: LACTATED RINGERS 1,000 ML 30 ML IV CONT (09:40)
[2025-02-22 09:51] LABS: BEDSIDEPREGUCG Negative (Negative)
[2025-02-22] MEDS: KETOROLAC 30 MG/ML VIAL (*BKC) IV PUSH (10:07)
--- NOTE | 2025-02-22 10:09 | S_PTH ---
PATIENT: Adeola Dockery LOC: [facility] U#:[id number] AGE/SX: 44/F ROOM: RE02/22/[address]: Kami Rodríguez MD : 1980 BED: DIS: 02/22/2025 SPEC #: [id number] RECD: 02/22/25 10:13 STATUS: WILLOW REQ #: [id number] JESSICA: 02/22/25 10:[address]: Kami Rodríguez DEPT: [facility] Surgical RECD BY: Mai Dasilva ENTERED: 02/22/25 10:13 SP TYPE: Surgical OTHR DR: Latoya Reis APRN Tissues: A - Endometrial Curettings Procedures: Hematoxylin and Eosin Stain Gross and Microscopic Level 4
[2025-02-22 10:26] VITALS: BP 112/86; PULSE 65; RESP 16; O2SAT 98
--- NOTE | 2025-02-22 10:27 | P.OP_ITS ---
Procedure Note - Detailed Date of Procedure 02/22/25 Pre-op Diagnosis irregular menstrual bleeding and menorrhagia Post-op Diagnosis Same Procedure Performed D&C hysteroscopy Surgeon Kami Rodríguez MD Anesthesia MAC Findings The internal cervix is stenotic. The uterus sounds to 8cm. The endometrium is very thickened without discrete lesions. Description of Procedure The patient was taken to the operating room and placed under anesthesia in the dorsal lithotomy position. She was prepped and draped in the usual sterile fashion. [facility] speculum was placed in the vagina and the cervix grasped on the anterior lip with tenaculum. The internal os is very stenotic. The small dilator would not pass. The os Finders are used and the cavity able to be entered. The cervix was dilated to a 4 Hegar. The uterus is sounded to 8cm. The diagnostic hysteroscope was placed and with the above-stated findings the small Aveta resection device is placed. Under direct visualization the endometrium is shaved. The hysteroscope was removed. The endometrium was curetted with a sharp curette until a good uterine cry was noted in all areas. Instruments are removed. Sponge, needle, and instrument counts are correct per the OR staff. The patient was taken to recovery in stable condition. Estimated Blood Loss 5 Drains No Packing No Pathology Yes (Endometrial curettings and shavings) Complications No immediate complications Condition Stable Disposition PACU
[2025-02-22 10:55] VITALS: BP 147/83; PULSE 60; RESP 16; O2SAT 98
[2025-02-22 11:25] VITALS: BP 145/85; PULSE 64; RESP 16
== END 2025-02-22 11:39 | disposition home or self-care (01) ==
PROVIDERS: Anesthesiology; PCP Nurse Practitioner Family; Visit Provider Obstetrics & Gynecology Gynecology
PROC: 0U5B8ZZ Destruction of Endometrium, Via Natural or Artificial Opening Endoscopic (ICD-10-PCS; CPT 58563; principal; 2025-02-22 10:30)
DX: N92.0 Excessive and frequent menstruation with regular cycle (principal); N84.0 Polyp of corpus uteri
CPT/HCPCS: 58558; 88305; A9270; J1100; J1885; J2003; J2250; J2405; J2704; J3010; J7120